=== PATIENT | female | born 1980 | race Caucasian/White ===

== ENCOUNTER 2017-04-02 03:01 | Emergency (ER) | payer BC ==
[2017-04-02 04:46] LABS: BASOPHIL % 0.7 % (0-2); PLATELET COUNT 281 x10^3mcL (130-400); RED CELL DISTRIBUTION WIDTH 13.7 % (11.5-14.5)
[2017-04-02 04:58] LABS: CALCIUM 8.4 mg/dL (8.5-10.1); CARBON DIOXIDE 24.4 mmol/L (21-32); CHLORIDE SERUM 105 mmol/L (98-107); CREATININE SERUM 0.7 mg/dL (0.6-1.0); GFR1 > 60 mL/min; GLUCOSE SERUM 104 mg/dL (74-106); POTASSIUM SERUM 3.6 mmol/L (3.5-5.1); SODIUM SERUM 137 mmol/L (136-145)
[2017-04-02 08:27] VITALS: BP 123/79
== END 2017-04-02 08:27 | disposition home or self-care (01) ==
LOC: ED 03:01
PROVIDERS: Emergency Medicine
DX: N64.4 Mastodynia (principal); Z98.82 Breast implant status
CPT/HCPCS: J1885; J7030; Q9967

== ENCOUNTER 2018-03-01 06:06 | Emergency (ER) | payer SELFPAY ==
[~2018-03-01] VITALS: Ht 162.6 cm; Wt 90.8 kg
[2018-03-01 08:05] VITALS: BP 118/67
== END 2018-03-01 08:05 | disposition home or self-care (01) ==
LOC: ED 06:06
DX: N39.0 Urinary tract infection, site not specified (principal)
CPT/HCPCS: J1885

== ENCOUNTER 2018-04-11 00:02 | Inpatient (IN) | payer BC ==
[~2018-04-11] VITALS: Ht 165.1 cm; Wt 91.6 kg
[2018-04-11 00:04] VITALS: Ht 165.1 cm; Wt 91.6 kg
[2018-04-11 00:46] LABS: BASOPHIL % 0.6 % (0-2); PLATELET COUNT 278 x10^3mcL (130-400)
[2018-04-11 00:54] LABS: CALCIUM 9.2 mg/dL (8.5-10.1); CARBON DIOXIDE 27.6 mmol/L (21-32); CHLORIDE SERUM 102 mmol/L (98-107); CREATININE SERUM 0.9 mg/dL (0.6-1.0); GFR1 > 60 mL/min; GLUCOSE SERUM 112 mg/dL (74-106); POTASSIUM SERUM 3.6 mmol/L (3.5-5.1); SODIUM SERUM 138 mmol/L (136-145)
[2018-04-11 01:01] LABS: ALBUMIN 3.6 g/dL (3.4-5.0); ALKALINE PHOSPHATASE 60 U/L (46-116); ALT/SGPT 27 U/L (14-59); AST/SGOT 18 U/L (15-37); TOTAL PROTEIN, SERUM 7.2 g/dL (6.4-8.2)
[2018-04-11 04:04] LABS: MAGNESIUM 1.9 mg/dL (1.8-2.4); PHOSPHOROUS 3.9 mg/dL (2.5-4.9)
[2018-04-11 04:05] LABS: CHOLESTEROL/HDL RATIO 5.5
[2018-04-11 04:09] LABS: T3 TOTAL 1.09 ng/mL
[2018-04-11 04:10] VITALS: BP 124/70
[2018-04-11 04:10] LABS: FREE T4 0.96 ng/dL (0.76-1.46); FREE THYROXINE INDEX 1.8 ug/dL (1.4-4.5); T4(THYROXINE) 5.9 ug/dL (4.7-13.3)
[2018-04-11 04:38] LABS: microscopic required? NO
[2018-04-11 04:47] LABS: urine erythrocyte NEGATIVE (NEGATIVE)
[2018-04-11 05:04] LABS: AMPHETAMINE QUAL UR NONE DETECTED (See below)
[2018-04-11 07:47] LABS: BASOPHIL % 0.4 % (0-2); PLATELET COUNT 258 x10^3mcL (130-400); RED CELL DISTRIBUTION WIDTH 13.6 % (11.5-14.5)
[2018-04-11 08:29] LABS: CALCIUM 8.6 mg/dL (8.5-10.1); CARBON DIOXIDE 22.2 mmol/L (21-32); CHLORIDE SERUM 105 mmol/L (98-107); CREATININE SERUM 0.7 mg/dL (0.6-1.0); GFR1 > 60 mL/min; GLUCOSE SERUM 101 mg/dL (74-106); SODIUM SERUM 137 mmol/L (136-145)
[2018-04-11 09:26] VITALS: BP 92/57
[2018-04-11 17:23] VITALS: BP 116/68
[2018-04-11 20:41] VITALS: BP 115/80
[2018-04-12 05:43] VITALS: BP 97/62
[2018-04-12] MEDS ORDERED: LIPI10 PO (08:37)
[2018-04-12] MEDS ORDERED: BAY PO (08:37)
[2018-04-12] MEDS ORDERED: SERTRALINE50 M1 PO (08:37)
[2018-04-12 09:15] VITALS: BP 117/75
[2018-04-12 12:54] VITALS: BP 116/77
[2018-04-12 16:19] VITALS: BP 116/77
== END 2018-04-12 17:00 | disposition home or self-care (01) | DRG 206 ==
LOC: ED 00:02 → DU 03:05
PROVIDERS: Emergency Medicine; General Practice
DX: M94.0 Chondrocostal junction syndrome [Tietze] (principal); K21.9 Gastro-esophageal reflux disease without esophagitis; E78.00 Pure hypercholesterolemia, unspecified; E78.5 Hyperlipidemia, unspecified; E78.1 Pure hyperglyceridemia; E66.9 Obesity, unspecified; F41.0 Panic disorder [episodic paroxysmal anxiety]; E02 Subclinical iodine-deficiency hypothyroidism; F32.9 Major depressive disorder, single episode, unspecified; F41.1 Generalized anxiety disorder; Z68.33 Body mass index [BMI] 33.0-33.9, adult; Z83.3 Family history of diabetes mellitus
CPT/HCPCS: 83880; 84439; A9500; J7030; Q0092